=== PATIENT | male | born 1960 | race Caucasian/White ===

== ENCOUNTER 2018-10-26 11:39 | Emergency (ER) | payer OTHER ==
[2018-10-26] MEDS ORDERED: OXYCODONE-ACETAMINOPHEN 5-325 MG TABLET PO ONE (12:20)
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
[2018-10-26 13:37] VITALS: BP 140/70
== END 2018-10-26 13:35 | disposition home or self-care (01) ==
LOC: ER 11:39
DX: S43.402A Unspecified sprain of left shoulder joint, initial encounter (principal); S16.1XXA Strain of muscle, fascia and tendon at neck level, initial encounter; S39.012A Strain of muscle, fascia and tendon of lower back, initial encounter; S09.90XA Unspecified injury of head, initial encounter; R51 Headache; M25.512 Pain in left shoulder; M25.561 Pain in right knee; V49.40XA Driver injured in collision with unspecified motor vehicles in traffic accident, initial encounter; J01.00 Acute maxillary sinusitis, unspecified; M54.2 Cervicalgia; G89.29 Other chronic pain; F17.200 Nicotine dependence, unspecified, uncomplicated; I10 Essential (primary) hypertension; Z98.1 Arthrodesis status
CPT/HCPCS: 99284; 73564; 72110; 73030; 72070; 70450; 72125; L3650

== ENCOUNTER → 2018-11-28 | Outpatient (CLI) | payer OTHER ==
--- NOTE | 2018-11-28 11:38 | RADIOLOGY REPORT (SQ) ---
EXAM DESCRIPTION: MRI CERVICAL SPINE COMBO COMPLETED DATE/TIME: 11/28/2018 10:05 am REASON FOR STUDY: RADICULOPATHY, CERVICAL REGION M54.12 RADICULOPATHY, CERVICAL REGION COMPARISON: CT cervical spine 10/26/2018 TECHNIQUE: Sagittal and Axial imaging includes T1, T2, STIR and gradient echo sequences. T1 post alee olinium sequences. CONTRAST TYPE AND DOSE: 15 mL Dotarem. RENAL FUNCTION: Not indicated. ACR Type II contrast agent associated with few, if any, unconfounded cases of NSF LIMITATIONS: None. FINDINGS: ALIGNMENT: Normal. VERTEBRAE: Intact. BONE MARROW: Minimal reactive fatty marrow endplate changes at C3, C4, and C7 DISCS: Disc space loss of height at C3-4. Diffuse decreased T2 weighted intervertebral disc signal. Post fusion with anterior plate and disc prosthesis at C5-6 HARDWARE: Post fusion with anterior plate and disc prosthesis at C5-6 CORD AND BASE OF BRAIN: Punctate focus of increased intrinsic cord signal at the C5-6 level likely a tiny focus of myelomalacia. This is best shown on sagittal T2 image 13. There is no associated cont rast enhancement. No significant cord atrophy at this level. SOFT TISSUES: No soft tissue masses. C1-C2: No significant spinal stenosis. C2-C3: No significant spinal stenosis or exit foraminal stenosis. C3-C4: Broad diffuse posterior disc bulging is present, partly effacing the ventral thecal sac. Bord jonathan central canal narrowing. There is moderate bilateral foraminal narrowing. C4-C5: No significant spinal stenosis or exit foraminal stenosis. C5-C6: No significant spinal stenosis or exit foraminal stenosis. C6-C7: Broad diffuse posterior disc bulging is present with mild bony spurring. This partly effaces the ventral thecal sac without cord flattening. Borderline central canal narrowing. Moderate bilate ral foraminal narrowing at C6-7 is present from facet and uncovertebral hypertrophy. C7-T1: No significant spinal stenosis or exit foraminal stenosis. UPPER THORACIC: Incompletely imaged. No significant spinal stenosis or exit foraminal stenosis. ENHANCEMENT: No abnormal cervical cord enhancement. OTHER: No other significant finding. IMPRESSION: Borderline central canal narrowing at C3-4 and C6-7 Moderate bilateral foraminal narrowing at C3-4 and C6-7 Post fusion at C5-6 without significant central or foraminal encroachment. COMMENT: None. TECHNICAL DOCUMENTATION: JOB ID: [id number] [employer]- All Rights Reserved Reading location - IP/workstation name: [email or web address]
== END ==
LOC: RAD 07:52
PROVIDERS: ATTEND Family Medicine
DX: M54.12 Radiculopathy, cervical region (principal)
CPT/HCPCS: 72156; A9576

== ENCOUNTER 2020-06-04 08:59 | Day surgery (SDC) | payer MEDICARE, OTHER ==
[~2020-06-04 08:59] MED LIST: CHONDR SU A NA/HYALUR INTRAOC KIT (SURGICARE) ONE; EPINEPHRINE INJ/PF 1 MG/1 ML AMPULE ONE; KETOROLAC TROMETHAMINE 0.45% 4 DROP/0.4 ML DROPERETTE OD PRN; LIDOCAINE 1%/PHENYLEPHRINE 1.5% 1 ML VIAL ONE; LIDOCAINE 3.5% OPH GEL/PF 1 ML/TUBE OD PRN; TRYPAN BLUE 0.06 % OPH SOLN 0.5 ML DISP.SYRIN ONE
[2020-06-04] MEDS: TROPICAMIDE 1% OPH SOLN 15 ML OD PRN ×3 (09:30→09:52)
[2020-06-04] MEDS: TETRACAINE HCL 0.5% OPH SOLN 4 ML OD PRN ×3 (09:30→09:57)
[2020-06-04] MEDS: BESIFLOXACIN HCL 0.6% OPH SUSP 5 ML BOTTLE OD PRN ×4 (09:30→10:24)
[2020-06-04] MEDS: CYCLOPENTOLATE 0.2%/PHENYLEPHRINE 1% OPH SOLN 2 ML OD PRN ×3 (09:30→09:51)
[2020-06-04] MEDS ORDERED: MIDAZOLAM 2 MG/2 ML INJ ONE (09:54)
[2020-06-04] MEDS ORDERED: FENTANYL CITRATE INJ/PF 100 MCG/2 ML AMPUL ONE (09:54)
[2020-06-04] MEDS: PREDNISOLONE ACETATE 1% OPH SUSP 5 ML OD PRN ×2 (10:24)
[2020-06-04] MEDS: DORZOLAMIDE HCL 2%/TIMOLOL MALEAT 0.5% OPH SOLN 10 ML OD PRN ×2 (10:24)
--- NOTE | 2020-06-04 11:55 | Operative Report ---
Operative Report-[facility] Operative Report: DATE OF SURGERY: 06/04/2020 PREOPERATIVE DIAGNOSIS: Other cataract, right eye POSTOPERATIVE DIAGNOSIS: Other cataract, right eye OPERATION: complex cataract extraction with insertion of an IOL of the right eye. With use of trypan blue dye Intraocular Lens Model: [20.5 SN 60 WF] Patient underwent surgery for difficulty driving SURGEON: Vasu Colon MD ANESTHESIA: Topical PROCEDURE: After obtaining appropriate consent, the patient's right eye was prepped and draped in a sterile fashion as well as the surgeon in the sterile manner and cataract surgery was started. First a paracentesis blade was used to make a side-port incision. Viscoelastic was used to inflate the anterior chamber. Next a 2.4 mm incision was made with a 2.4 mm blade, clear corneal temporarily. Trypan blue dye was used to stain the anterior capsule due to poor red reflex A continuous capsulorrhexis was made using a cystotome and Utrata forceps. Following this hydrodissection was carried out to make the kristin fully loose and mobile and it was rotated. Following this, a divide and conquer technique was used to phacoemulsify the kristin. The remaining cortex was removed with an irrigation/aspiration. Provisc was instilled into the capsular bag to inflate the bag. The intraocular lens was placed. The remaining viscoelastic material was removed with irrigation/aspiration. Following this, the incision was found to be watertight. Besivance and Cosopt was instilled into the eye and a protective shield was placed over the eye. The patient was reurned to the postoperative recovery in a stable condition.
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
== END 2020-06-04 10:56 | disposition home or self-care (01) ==
LOC: SC 08:59
PROVIDERS: ATTEND Internal Medicine
DX: H25.89 Other age-related cataract (principal); H25.812 Combined forms of age-related cataract, left eye; H52.4 Presbyopia; I10 Essential (primary) hypertension; I25.2 Old myocardial infarction; F17.210 Nicotine dependence, cigarettes, uncomplicated
CPT/HCPCS: 66982; V2632; J2250; J3490 ×3; A9270; J0171; J3010